=== PATIENT | male | born 1990 | race Caucasian/White ===

== ENCOUNTER 2017-03-11 03:28 | Emergency (ER) | payer OTHER ==
--- NOTE | ~2017-03-11 | EKG ---
PATIENT: JIM SRINIVASAN UNIT #: [id number] Ventricular Rate: 106 BPM Atrial Rate: 106 BPM P-R Interval: 150 ms QRS Duration: 92 ms Q-T Interval: 320 ms QTC Calculation(Bezet): 425 ms P Marydel: 35 degrees Calculated R Marydel: 23 degrees Calculated T Marydel: -4 degrees Diagnosis Line: Sinus tachycardia Diagnosis Line: Cannot rule out Inferior infarct , age Diagnosis Line: undetermined Diagnosis Line: Abnormal ECG Diagnosis Line: No previous ECGs available Diagnosis Line: Confirmed by IAN CLIFFORD MD ([id number]) on Diagnosis Line: 03/17/2017 9:00:28 AM INTERPRETING MD: VENESSA MAS
--- NOTE | ~2017-03-11 | CR72 ---
[facility] A Service of [facility] & [facility] RADIOLOGY TEXT RESULTS PATIENT: JIM SRINIVASAN LOCATION: SED : 89 UNIT #: [id number] AGE: [address]: Hernán Berrios MD SEX: M ORDER DR: [id number] [address] [address] [id number] MR#: [id number] Acc #: [id number] NAME: JIM SRINIVASAN : 1990 SEX: M STUDY DATE/TIME: 03/11/2017 4:11 UNIT: SED ROOM: STUDY DESCRIPTION: CR Chest Single View Portable Attending Physician: Hernán Berrios M.D. Ordering Physician: Hernán Berrios M.D. Primary Care Physician: No Primary Care Physician MEDICAL IMAGING REPORT This report is preliminary unless electronic signature is present. EXAM Portable chest HISTORY Chest pain radiating to the left arm for 3 days. FINDINGS Portable view of the chest obtained. The heart size and vascularity are normal. Lungs are clear. The bones are unremarkable. IMPRESSION No active disease. Dictated by... Tai Stein M.D. THIS IS AN ELECTRONICALLY VERIFIED REPORT Tai Stein M.D. at 03/11/2017 8:20 PM Eric TD: 03/11/2017 15:27 JOB #: [id number] MEDICAL IMAGING REPORT Page 1 of 1
[~2017-03-11 03:28] MED LIST: MOTRIN400 M1 PO; MUCINEX D ER T1 EAC1 PO; NO MEDICATIONS; ZITHROMAX PO
[2017-03-11 04:14] LABS: URINE SOURCE CLEAN CATCH
[2017-03-11 04:17] LABS: MICRO INDICATED? NO; URINE APPEARANCE CLEAR; URINE BILIRUBIN NEG (NEG); URINE BLOOD NEG (NEG); URINE COLOR YELLOW; URINE GLUCOSE NEG (NORM); URINE KETONE NEG (NEG); URINE LEUKOCYTE ESTERASE NEG (NEG); URINE NITRATE NEG (NEG); URINE PROTEIN NEG (NEG); URINE SPECIFIC GRAVITY <=1.005 (1.003-1.035); URINE UROBILINOGEN 0.2 MG/DL (NORM)
[2017-03-11 04:22] LABS: POC - CKMB <1.0 ng/mL (0.0-7.9); POC - TROPONIN <0.05 ng/mL (<=0.05)
== END 2017-03-11 05:12 | disposition home or self-care (01) ==
LOC: SED 03:28
PROVIDERS: Emergency Medicine
DX: R07.89 Other chest pain (principal); F41.9 Anxiety disorder, unspecified; F17.210 Nicotine dependence, cigarettes, uncomplicated
CPT/HCPCS: 71010; 81003; 82553; 84484; 93005; 96360; 99285